=== PATIENT | female | born 1965 | race Caucasian/White ===

== ENCOUNTER 2023-03-22 09:29 | Observation (INO) | payer OTHER, SELFPAY ==
[2023-03-22] VITALS (13 sets, daily range): BP systolic 95–171; BP diastolic 58–77; PULSE 45–69; RESP 10–23; TEMP 36.2–36.7; O2SAT 92–99; BMI 23.6
--- NOTE | 2023-03-22 09:38 | DI.RAD.S_ITS ---
PROCEDURE: XR CHEST 1V INDICATIONS: chest pain TECHNIQUE: One view of the chest was acquired. COMPARISON: None. FINDINGS: Surgical changes and devices: None. Lungs and pleura: Lungs are clear. No pleural effusions or pneumothorax. Mediastinum: Mediastinal contours appear normal. Heart size is normal. Bones and chest wall: No suspicious bony lesions. Overlying soft tissues appear unremarkable. IMPRESSION: No evidence acute pulmonary process. Dictated by: Wellington Jones M.D. on 03/22/2023 at 10:28 Approved by: Wellington Jones M.D. on 03/22/2023 at 10:28
[2023-03-22 09:55] LABS: Add Manual Diff / Slide Review NO; Basophils Absolute Auto 100 /uL (0-100); Basophils Percent Auto 1.2 % (0-2); Eosinophils Absolute Auto 100 /uL (0-450); Eosinophils Percent Auto 1.7 % (2-4); Hematocrit 39.5 % (36-46); Hemoglobin 13.6 g/dL (12.0-16.0); Lymphocytes Absolute Auto 1900 /uL (1100-4500); Lymphocytes Percent Auto 31.9 % (25-40); Mean Corpuscular HGB Conc 34.3 % (30-36); Mean Corpuscular Hemoglobin 31.6 PG (26-34); Mean Corpuscular Volume 92.1 fL (80-100); Monocytes Absolute Auto 500 /uL (0-900); Monocytes Percent Auto 7.6 % (3-14); Neutrophils Absolute Auto 3400 /uL (1500-7000); Neutrophils Percent Auto 57.6 % (50-75); Platelet Count 220 X10^3/uL (150-400); Red Blood Cell Count 4.29 X10^6/uL (4.0-5.2); Red Cell Distribution Width 12.7 % (11.6-14.8)
[2023-03-22 10:05] LABS: INR 0.9 (0.9-1.3); Prothrombin Time 10.6 SECONDS (10.1-12.7)
[2023-03-22 10:07] LABS: PTT Partial Thromboplastin Tim 26 SECONDS (26-36)
[2023-03-22 10:09] LABS: Alanine Aminotransferase 26 IU/L (<35); Albumin 4.3 g/dL (3.5-5.0); Albumin Globulin Ratio 1.6 (1.0-2.8); Alkaline Phosphatase 75 U/L (38-126); Aspartate Aminotransferase 31 IU/L (14-36); BUN Creatinine Ratio 17.7 (6-22); Bilirubin Total 0.8 mg/dL (0.2-1.3); Blood Urea Nitrogen 17 mg/dL (7-17); Calcium 9.1 mg/dL (8.4-10.2); Carbon Dioxide 26 mmol/L (22-32); Chloride 106 mmol/L (98-107); Creatine Kinase 99 U/L (30-135); Estimated Glomerular Filt Rate > 60 mL/min (>60); Globulin 2.7 g/dL (1.7-4.1); Glucose 100 mg/dL (70-100); HEMOLYSIS < 15 (0-50); Lipase 103 U/L (23-300); Magnesium 2.1 mg/dL (1.6-2.3); Potassium 4.2 mmol/L (3.4-5.1); Sodium 139 mmol/L (137-145)
[2023-03-22] MEDS: ASPIRIN 81 MG CHEW TAB 324 MG PO (10:17)
[2023-03-22 10:22] LABS: Troponin I < 0.012 ng/mL (0.01-0.034)
--- NOTE | 2023-03-22 10:26 | PC.NURSE ---
Patient experienced sudden return of pain, 8/10 lasting a couple minutes before resolving, no changes noted to telemetry. Dr. Cárdenas notified and at bedside assessing pt.
--- NOTE | 2023-03-22 10:34 | ED_ITS ---
HPI - Chest Pain General Chief Complaint: Chest Pain Stated Complaint: SOB/ chest tightness/ shakey legs Time Seen by Provider: 03/22/23 09:51 Source: patient Mode of arrival: Ambulatory Limitations: no limitations History of Present Illness HPI narrative: Patient here with substernal tightness of the chest over the weekend. However it started last week but more intense this week with exertion and exercise. Betzaida ascencio is very active. She states she hikes and coughing and does sporting activities. However she does have significant primary family cardiac disease. Both parents in their 50s of heart attacks. She is never had a stress test. She does not take blood pressure medication. She is supposed to be on cholesterol medication in the past year but is not. She does not smoke. Currently 2/10 substernal tightness. At times it is reproducible other times it is not. She was bowling over the weekend when this pain intensified. No nausea no sweating no shortness of breath. Related Data Home Medications Medication Instructions Recorded Confirmed No Known Home Medications 03/22/23 03/22/23 Allergies Allergy/AdvReac Type Severity Reaction Status Date / Time No Known Drug Allergies Allergy Verified 03/22/23 09:36 Review of Systems Review of Systems Narrative: GENERAL: negative chills, fatigue, malaise, fever, sweats. HEENT: negative sinus pain, ear pain, sore throat RESPIRATORY: negative dyspnea, cough CARDIOVASCULAR: Positive chest pain, negative palpitations GASTROINTESTINAL: negative nausea, vomiting, abdominal pain : negative dysuria, frequency, hematuria MUSCULOSKELETAL: negative muscle or bony pain SKIN: negative rash, skin lesions NEUROLOGIC: negative weakness, numbness ROS Unobtainable: All systems reviewed & are unremarkable except as noted in HPI and below Patient History Social History household members: none Smoking Status: Never smoker alcohol intake: current Smoking Status: Never smoker alcohol intake frequency: 0-2 drinks per day Substance Use Type: does not use Exam Narrative Exam Narrative: GENERAL: in no distress, not toxic not dyspneic HEAD: Normocephalic. EYES: Pupils equal round ENT: Mucous membranes moist. NECK: Trachea midline. CARDIOVASCULAR: Regular rate and rhythm without murmurs RESPIRATORY: Clear to auscultation. Breath sounds equal bilaterally. No wheezes, rales, or rhonchi. GASTROINTESTINAL: Abdomen soft, non-tender EXTREMITIES: No gross deformities. BACK: No flank tenderness. NEURO: AOx4. SKIN: Warm and dry PSYCH: Not anxious, is cooperative Initial Vital Signs Initial Vital Signs: Vital Signs Temperature 97.1 F L 03/22/23 09:32 Pulse Rate 69 03/22/23 09:32 Respiratory Rate 17 03/22/23 09:32 Blood Pressure 171/71 H 03/22/23 09:32 Pulse Oximetry 99 03/22/23 09:32 Oxygen Delivery Method Room Air 03/22/23 09:32 Scores HEART Score Heart Score history: Moderately Suspicious Heart Score EKG: Non-Specific repolarization disturbance Heart Score Age: 45-64 years old Heart Score risk factors: > 3 risk factors or hx of atherosclerotic disease Heart Score troponin: < or = to normal limit Heart Score Total: 5 Course Orders Ordered: Discontinued Medications Acetaminophen (Acetaminophen 325 Mg Tablet) 650 mg PO Q6H PRN PRN Reason: Fever/Mild Pain (1-3) Aspirin (Aspirin 81 Mg Chew Tab) 324 mg PO NOW ONE Stop: 03/22/23 09:39 Last Admin: 03/22/23 10:17 Dose: 324 mg Documented By: AT Aspirin (Aspirin Ec 81 Mg Tablet) 81 mg PO DAILY [facility] Last Admin: 03/23/23 08:48 Dose: 81 mg Documented By: BT Atorvastatin Calcium (Atorvastatin 20 Mg Tablet) 40 mg PO BEDTIME [facility] Last Admin: 03/22/23 20:54 Dose: 40 mg Documented By: MAHOGANY Naloxone HCl (Naloxone 0.4 Mg/Ml Vial) 0.2 mg IV Q2MIN PRN PRN Reason: Opiate Reversal Nitroglycerin (Nitroglycerin Oint 1 Inch/Gm Oint...G.) 0.5 inch TOP NOW ONE Stop: 03/22/23 10:34 Last Admin: 03/22/23 10:37 Dose: 0.5 inch Documented By: AT Vital Signs Vital signs: Vital Signs - 8 hr 03/22/23 09:32 03/22/23 09:40 03/22/23 09:41 Temperature 97.1 F L Pulse Rate 69 61 Respiratory Rate 17 23 Blood Pressure 171/71 H 161/76 H Pulse Oximetry 99 92 Oxygen Delivery Method Room Air 03/22/23 09:41 03/22/23 10:00 03/22/23 10:00 Temperature Pulse Rate 60 59 L Respiratory Rate 10 L 13 Blood Pressure 134/66 Pulse Oximetry 97 97 Oxygen Delivery Method Room Air Room Air 03/22/23 10:37 Temperature Pulse Rate 57 L Respiratory Rate Blood Pressure 171/77 H Pulse Oximetry Oxygen Delivery Method MDM - Chest Pain Lab Data 03/23/23 04:55 03/23/23 04:55 Labs: Lab Results 03/22/23 03/22/23 03/22/23 Range/Units 09:45 09:45 09:45 WBC 6.0 (4.5-11.0) X10^3/uL RBC 4.29 (4.0-5.2) X10^6/uL Hgb 13.6 (12.0-16.0) g/dL Hct 39.5 (36-46) % MCV 92.1 (80-100) fL MCH 31.6 (26-34) PG MCHC 34.3 (30-36) % RDW 12.7 (11.6-14.8) % Plt Count 220 (150-400) X10^3/uL Neut % (Auto) 57.6 (50-75) % Lymph % (Auto) 31.9 (25-40) % [place] % (Auto) 7.6 (3-14) % Eos % (Auto) 1.7 L (2-4) % Baso % (Auto) 1.2 (0-2) % Neut # (Auto) 3400 (8112-1148) /uL Lymph # (Auto) 1900 (1294-3931) /uL [place] # (Auto) 500 (0-900) /uL Eos # (Auto) 100 (0-450) /uL Baso # (Auto) 100 (0-100) /uL PT 10.6 (10.1-12.7) SECONDS INR 0.9 (0.9-1.3) APTT 26 (26-36) SECONDS Sodium 139 (137-145) mmol/L Potassium 4.2 (3.4-5.1) mmol/L Chloride 106 (98-107) mmol/L Carbon Dioxide 26 (22-32) mmol/L BUN 17 (7-17) mg/dL Creatinine 0.96 (0.52-1.04) mg/dL Estimated GFR > 60 (>60) mL/min BUN/Creatinine Ratio 17.7 (6-22) Glucose 100 (70-100) mg/dL Calcium 9.1 (8.4-10.2) mg/dL Magnesium 2.1 (1.6-2.3) mg/dL Total Bilirubin 0.8 (0.2-1.3) mg/dL AST 31 (14-36) IU/L ALT 26 (<35) IU/L Alkaline Phosphatase 75 (38-126) U/L Total Creatine Kinase 99 (30-135) U/L CK-MB (CK-2) TNP CK-MB (CK-2) Rel Index TNP Troponin I < 0.012 (0.01-0.034) ng/mL Total Protein 7.0 (6.3-8.2) g/dL Albumin 4.3 (3.5-5.0) g/dL Globulin 2.7 (1.7-4.1) g/dL Albumin/Globulin Ratio 1.6 (1.0-2.8) Lipase 103 (23-300) U/L Imaging Data Chest x-ray: Radiologist's Impression: [address] [address] XRay Report Signed Patient: Kay Oneal MR#: [id number] : 1965 Acct:[id number] Age/Sex: 57 / F Date of Service: 03/22/23 Loc: ED Accession Number: [id number] ?? Procedure: XR chest 1V Ordering Provider: Jb Cárdenas MD PROCEDURE:? XR CHEST 1V ? INDICATIONS:? chest pain ? TECHNIQUE:? One view of the chest was acquired.? ? COMPARISON:? None. ? FINDINGS:? ? Surgical changes and devices:? None.? ? Lungs and pleura:? Lungs are clear.? No pleural effusions or pneumothorax.? ? Mediastinum:? Mediastinal contours appear normal.? Heart size is normal.? ? Bones and chest wall:? No suspicious bony lesions.? Overlying soft tissues appear unremarkable.? ? IMPRESSION:? No evidence acute pulmonary process. ? ? ? Dictated by: Wellington Jones M.D. on 03/22/2023 at 10:28 ? ? Approved by: Wellington Jones M.D. on 03/22/2023 at 10:28 ? MDM Narrative Medical decision making narrative: Patient here with substernal tightness of the chest over the weekend. However it started last week but more intense this week with exertion and exercise. Patient is very active. She states she hikes and coughing and does sporting activities. However she does have significant primary family cardiac disease. Both parents in their 50s of heart attacks. She is never had a stress test. She does not take blood pressure medication. She is supposed to be on cholesterol medication in the past year but is not. She does not smoke. Currently 2/10 substernal tightness. At times it is reproducible other times it is not. She was bowling over the weekend when this pain intensified. No nausea no sweating no shortness of breath. After history and exam CBC CMP troponin EKG chest x-ray lipase aspirin nitro paste MDM CC: Chest pain Complicating co-morbidities: Significant family history of cardiac disease, history of hypercholesteremia Data collected from: Patient Medical records reviewed: No recent visits for this complaint Differential considered: Includes but not limited to STEMI non-STEMI stable angina unstable angina Exam documented above, pertinent findings include: Nonreproducible chest pain Lab Test results independently reviewed as above. Pertinent findings: Troponin less than 0.012 WBC 6 hemoglobin 13.6 hematocrit 39.5 INR 0.9 sodium 139 AST 31 ALT 26 lipase 103 Independently reviewed EKG sinus bradycardia rate [address] elevation or d epression Imaging studies independently reviewed: Chest x-ray no acute process Consultations: 10:36 a.m.. Spoke with Cardiology, Dr. Moraes, recommends exercise treadmill stress test and echocardiogram admission. 10:57 a.m.. Spoke with hospitalist, Dr. Hough, she will admit patient Treatments: Aspirin nitro paste Re-evaluations: Reviewed results with patient. Agrees for admission. Pain is controlled. Discussion: Appropriate for admission for chest pain rule out and exercise treadmill stress test and echocardiogram. Pain is controlled at time of admission. Reviewed with hospitalist and warper tender. Patient agrees for admission. Aspirin and nitro paste given here. Diagnosis: Acute chest pain Discharge Plan Departure Patient Disposition: Admitted as Observation Clinical Impression: Chest pain Admit Date/Time: 03/22/23 10:53 Admit Provider: Adelina Hough
[2023-03-22] MEDS: NITROGLYCERIN OINT 1 INCH/GM OINT...G. 0.5 INCH TOP (10:37)
--- NOTE | 2023-03-22 11:12 | DI.ECHO.S_ITS ---
[facility]---------+ [facility] +---------+ : : [address] : : : : [id number] : : : : Phone: [phone]+ Echocardiogram Report + + :Name: FRANCINE MARQUEZ Study Date: 03/23/2023 Height: 69 in : :[facility] ReadingLocation: Weight: 160 lb : : Gender: Female BSA: 1.9 m2 : :: 1965 Age: 57 yrs BP: 101/58 mmHg: :Reason For Study: CHEST PAIN : :Ordering Physician: JOCELINE, : :ESTRELLITA Performed By: Idalia Hou : :Referring: ESTRELLITA CAR : + + Interpretation Summary The left ventricle is normal in size and wall thickness. Left ventricular systolic function appears normal without focal wall motion abnormalities. The ejection fraction is estimated to be 60-65%. Diastolic parameters suggest probable normal left ventricular diastolic function and normal filling pressures. The right ventricle is normal in size and function. The left atrial size is normal. ight atrial size is normal. There is no significant valvular heart disease. The aortic root is normal size. Procedure: A two-dimensional transthoracic echocardiogram with color flow and Doppler was performed. The study quality was technically adequate. There is no prior echocardiogram noted for this patient. The patient was in sinus bradycardia with heart rates between 48-63 bpm during the exam. Left Ventricle: The left ventricle is normal in size and wall thickness. Left ventricular systolic function appears normal without focal wall motion abnormalities. The ejection fraction is estimated to be 60-65%. Diastolic parameters suggest probable normal left ventricular diastolic function and normal filling pressures. Right Ventricle: The right ventricle is normal in size and function. Atria: The left atrial size is normal. Right atrial size is normal. There is no Doppler evidence for an interatrial shunt. Mitral Valve: The mitral valve is normal in structure and function. There is trace mitral regurgitation. Aortic Valve: The aortic valve is trileaflet. The aortic valve opens well. There is no aortic valve stenosis. No aortic regurgitation is present. Tricuspid Valve: The tricuspid valve is normal in structure and function. There is trace tricuspid regurgitation. Pulmonic Valve: The pulmonic valve is not well visualized. There is no pulmonic valvular regurgitation. There is no significant valvular heart disease. Great Vessels: The aortic root is normal size. The dimensions of the ascending aorta are normal. The IVC is of normal diameter and collapses greater than 50% with a sniff. This suggests a low right atrial pressure of 3 mm Hg. Pericardium/ Pleura There is no pericardial effusion. There is no pleural effusion. MMode/2D Measurements & Calculations LVIDd: 4.5 cm LVOT diam: 2.1 cm LVIDs: 3.1 cm Ao root diam: 3.6 cm FS: 29.9 % asc Aorta Diam: 3.2 cm EPSS: 0.71 cm Ao Arch Diam (Prox Trans): 2.4 cm IVSd: 0.83 cm LVPWd: 0.50 cm LV orozco. diameter/BSA (cm/m^2): 2.4 LV sys. diameter/BSA (cm/m^2): 1.7 LA A2 area: 15.9 cm2 RA long axis: 4.2 cm LA A4 area: 12.2 cm2 RA area: 11.2 cm2 LA length (vol): 4.4 cm RA vol: 25.2 ml LA vol: 37.7 ml RA : 13.4 ml/m2 LA vol index: 20.1 ml/m2 IVC diam: 1.5 cm RVD1 (basal): 3.0 cm RVD2 (mid): 2.7 cm TAPSE: 1.9 cm Doppler Measurements & Calculations Ao V2 max: 118.0 cm/sec LVOT Max Andry: 87.5 cm/sec Ao V2 mean: 80.4 cm/sec LV V1 max P.1 mmHg Ao max P.6 mmHg LV V1 VTI: 20.5 cm Ao mean P.9 mmHg BRICE(I,D): 2.5 cm2 Ao V2 VTI: 28.1 cm BRICE(V,D): 2.5 cm2 sev ratio: 0.73 BRICE indexed to BSA (cm^2/m^2): 1.3 MV E max andry: 66.6 cm/sec PA V2 max: 72.6 cm/sec MV A max andry: 52.0 cm/sec PA V2 mean: 49.4 cm/sec MV E/A: 1.3 PA mean P.1 mmHg Med Peak E' Adnry: 9.9 cm/sec PA pr(Accel): 12.2 mmHg E/E' med: 6.8 Lat Peak E' Andry: 13.9 cm/sec E/E' lat: 4.8 E/e' average: 5.8 MV dec time: 0.27 sec SV(LVOT): 69.4 ml Reading Physician:09:12 AM
--- NOTE | 2023-03-22 11:12 | PC.NURSE ---
Patient reports improvement since nitroglycerin placement, pain is a 0/10 to 1/10.
--- NOTE | 2023-03-22 12:04 | PC.NURSE ---
Pt arrived from ED at 1115, VSS on RA, no c/o pain. A&Ox4, no c/o chest pain or pressure, no SOB, CMS intact throughout. Lung sounds CTA, bowel sounds present. Pt ok to be independent in the room, oriented to room and call light. Tele monitor placed, NPO awaiting stress test and Echo.
--- NOTE | 2023-03-22 17:45 | PM.HP.1 ---
History of Present Illness History of Present Illness Chief complaint: SOB/ chest tightness/ shakey legs Narrative: 57-year-old female with history of hyperlipidemia who presented to the emergency department today with chest pain/pressure. Patient reports she is very active at baseline. Six days ago she did an 8 mi hike and was able to complete it without difficulty. She is in a bowling league and states she was bowling through the weekend. She noticed onset of some chest pressure while she was bowling yesterday. She notes that the symptoms lasted about 5 minutes. She did not have any associated lightheadedness, diaphoresis, nausea, or shortness of breath. She thought it might be musculoskeletal as it occurred while she was throwing the ball (she is right-handed). She describes a pressure like someone was sitting on her chest. She notes when she bent down the symptoms worsened. She states the symptoms continued on and off throughout the evening. They occurred while she was driving home. Ultimately, they resolved. She states this morning she went out to turn on the water to water her garden. When bending down and twisting the handle on the water faucet, she noticed recurrence of the symptoms. She stood up and felt a little lightheaded. She also felt she was a little bit diaphoretic. She contacted her sister who recommended she come to the ER for further evaluation. In the emergency department, she complained of 2/10 chest pain/pressure. Initial temp was 97.1?, heart rate 69, respiratory rate 17, BP 171/71. She reports her usual blood pressure runs in the low 100 systolic. Initial troponin was negative. EKG revealed nonspecific ST changes but appeared nonischemic. She was given aspirin 325 mg, 1/2 inch of nitropaste. Although her primary risk factor is hyperlipidemia, there is a family history of cardiac disease in both parents in their 50s. Patient has no history of hypertension, tobacco dependence, or diabetes. Emergency department physician discussed the case with Cardiology on-call who recommended an exercise treadmill test and echocardiogram for further risk stratification. Initially, it was thought her treadmill could be done today. The emergency department physician advised he would obtain a 2nd troponin level but it does not appear that was requested. Currently, patient reports she is pain-free. She notes that the nitro paste seemed to do the most in relieving her symptoms. She is presently chest pain-free. [facility] Social History household members: none Smoking Status: Never smoker alcohol intake: current Comment: Past medical history: Hyperlipidemia-patient reports her total cholesterol is up near 300, but her ratio is typically normal, she does have an active atorvastatin prescription at home but does not take it. Achilles tendonitis Family history: Both parents had heart disease and in their 50s Sister has GERD Social history: Lifelong nonsmoker. Occasional alcohol use Meds Home Medications and Allergies Home Medications Medication Instructions Recorded Confirmed Type No Known Home Medications 03/22/23 03/22/23 History Allergies Allergy/AdvReac Type Severity Reaction Status Date / Time No Known Drug Allergies Allergy Verified 03/22/23 09:36 Review of Systems Review of Systems Narrative: All other systems were reviewed negative Exam Vital Signs (past 8 hours): - 03/22/23 10:00 03/22/23 10:00 03/22/23 10:37 Temperature Pulse Rate 59 L 57 L Respiratory Rate 13 Blood Pressure 134/66 171/77 H Pulse Oximetry 97 Oxygen Delivery Method Room Air Oxygen Flow Rate 03/22/23 10:30 03/22/23 10:31 03/22/23 10:31 Temperature Pulse Rate 61 57 L Respiratory Rate 14 Blood Pressure 171/77 H Pulse Oximetry 97 96 Oxygen Delivery Method Room Air Oxygen Flow Rate 03/22/23 11:00 03/22/23 11:01 03/22/23 11:01 Temperature Pulse Rate 54 L 59 L Respiratory Rate 12 19 Blood Pressure 127/66 Pulse Oximetry 97 96 Oxygen Delivery Method Room Air Room Air Oxygen Flow Rate 03/22/23 11:32 03/22/23 11:53 03/22/23 13:45 Temperature 97.8 F Pulse Rate 56 L 45 L Respiratory Rate 16 Blood Pressure 134/63 107/69 Pulse Oximetry 96 Oxygen Delivery Method Room Air Oxygen Flow Rate 0 Oxygen Delivery Method Room Air Oxygen Flow Rate 0 Narrative Exam Narrative: GEN: Very pleasant middle-aged female, Alert and oriented x3, no acute distress HEENT: Normocephalic, face symmetric, pupils equal round reactive to light, extraocular movements intact, sclerae anicteric, conjunctiva clear, nares patent, oropharynx reveals an intact soft and hard palate with moist mucous membranes, dentition is fair NECK: Supple, no lymphadenopathy, thyroid without enlargement or nodularity, carotids no bruits CHEST: Respiratory excursions symmetric, clear to auscultation bilaterally CV: Regular rate and rhythm, no murmurs, rubs, gallops, PMI nondisplaced ABD: Soft, nontender, nondistended, bowel sounds present in all 4 quadrants, no organomegaly or masses appreciated EXTR: Warm, well perfused, no clubbing/cyanosis/edema SKIN: Warm and dry, without rash NEURO: Alert and oriented x3, grossly intact PSYCH: Mood and affect is within normal limits, judgment and insight are appropriate Objective Labs 03/22/23 09:45 03/22/23 09:45 Labs: Laboratory Results - last 24 hr 03/22/23 03/22/23 03/22/23 09:45 09:45 09:45 WBC 6.0 RBC 4.29 Hgb 13.6 Hct 39.5 MCV 92.1 MCH 31.6 MCHC 34.3 RDW 12.7 Plt Count 220 Neut % (Auto) 57.6 Lymph % (Auto) 31.9 [place] % (Auto) 7.6 Eos % (Auto) 1.7 L Baso % (Auto) 1.2 Neut # (Auto) 3400 Lymph # (Auto) 1900 [place] # (Auto) 500 Eos # (Auto) 100 Baso # (Auto) 100 PT 10.6 INR 0.9 APTT 26 Sodium 139 Potassium 4.2 Chloride 106 Carbon Dioxide 26 BUN 17 Creatinine 0.96 Estimated GFR > 60 BUN/Creatinine Ratio 17.7 Glucose 100 Calcium 9.1 Magnesium 2.1 Total Bilirubin 0.8 AST 31 ALT 26 Alkaline Phosphatase 75 Total Creatine Kinase 99 CK-MB (CK-2) TNP CK-MB (CK-2) Rel Index TNP Troponin I < 0.012 Total Protein 7.0 Albumin 4.3 Globulin 2.7 Albumin/Globulin Ratio 1.6 Lipase 103 Assessment & Plan Assessment & Plan narrative: 1. Chest pain Risk factors include hyperlipidemia, family history. Somewhat reassuring is the fact that she did not 8 mi hike just 6 days ago and had no anginal symptoms. However, she did have chest pressure, diaphoresis, and she reports some lightheadedness. Responded to nitro paste. Patient is admitted under observation status. Will send a fasting lipid panel. Will repeat a stat troponin level. She will be NPO after midnight and undergo an exercise stress test and echocardiogram in the morning. 2. Elevated blood pressures On arrival, she would significantly elevated blood pressures, which may have been secondary to anxiety/pain. Blood pressures have gradually improved and normalized over the course of her time in the hospital. Will monitor. 3. Hyperlipidemia Patient reports she has an active prescription of atorvastatin at home. She says the meds have not . She agrees that she should restart it. Fasting lipids will be drawn in the morning. 4. Sinus bradycardia Suspect this is her normal resting heart rate as she is very active woman and rather athletic overall. 5. Achilles tendonitis She will have a friend bring her appropriate shoes for her treadmill stress test tomorrow she only has loafers here. She reports she was discharged from physical therapy a month ago. Code status Full Prophylaxis Low Corrina score Disposition Admit to observation status Quality VTE Deep Vein Thrombosis/Pulmonary Embolism Present on Admission: No
[2023-03-22 19:11] LABS: Troponin I < 0.012 ng/mL (0.01-0.034)
[2023-03-22] MEDS: ATORVASTATIN 20 MG TABLET 40 MG PO (20:54)
[2023-03-23 01:04] VITALS: BP 96/55; PULSE 61; RESP 19; TEMP 36.1; O2SAT 96
[2023-03-23 05:04] VITALS: BP 101/58; PULSE 58; RESP 18; TEMP 36.1; O2SAT 95
[2023-03-23 05:38] LABS: BUN Creatinine Ratio 27.5 (6-22); Blood Urea Nitrogen 19 mg/dL (7-17); Calcium 8.7 mg/dL (8.4-10.2); Carbon Dioxide 26 mmol/L (22-32); Chloride 107 mmol/L (98-107); Estimated Glomerular Filt Rate > 60 mL/min (>60); Glucose 99 mg/dL (70-100); HEMOLYSIS 47 (0-50); Potassium 4.2 mmol/L (3.4-5.1); Sodium 138 mmol/L (137-145)
[2023-03-23 05:40] LABS: Cholesterol 241 mg/dL (140-199); HDL Cholesterol 57 mg/dL (40-60); LDL Cholesterol Calculated 159 mg/dL (<100); Triglycerides 124 mg/dL (35-150)
[2023-03-23 05:47] LABS: Add Manual Diff / Slide Review NO; Basophils Absolute Auto 0 /uL (0-100); Basophils Percent Auto 0.8 % (0-2); Eosinophils Absolute Auto 100 /uL (0-450); Eosinophils Percent Auto 2.6 % (2-4); Hematocrit 36.7 % (36-46); Hemoglobin 12.7 g/dL (12.0-16.0); Lymphocytes Absolute Auto 1800 /uL (1100-4500); Lymphocytes Percent Auto 40.5 % (25-40); Mean Corpuscular HGB Conc 34.7 % (30-36); Mean Corpuscular Hemoglobin 31.7 PG (26-34); Mean Corpuscular Volume 91.5 fL (80-100); Monocytes Absolute Auto 400 /uL (0-900); Monocytes Percent Auto 8.4 % (3-14); Neutrophils Absolute Auto 2200 /uL (1500-7000); Neutrophils Percent Auto 47.7 % (50-75); Platelet Count 190 X10^3/uL (150-400); Red Blood Cell Count 4.01 X10^6/uL (4.0-5.2); Red Cell Distribution Width 12.6 % (11.6-14.8); White Blood Cell Count 4.5 X10^3/uL (4.5-11.0)
[2023-03-23 08:00] VITALS: BP 105/62; PULSE 59; RESP 20; TEMP 35.9; O2SAT 98
[2023-03-23] MEDS: ASPIRIN EC 81 MG TABLET PO (08:48)
[2023-03-23 12:00] VITALS: BP 112/66; PULSE 72; RESP 18; TEMP 36.5; O2SAT 98
--- NOTE | 2023-03-23 12:01 | CM.DANOTE ---
Discharge Planning/Care Management CM Discharge Assessment Start: 03/23/23 11:56 Freq: Status: Active Protocol: Document 03/23/23 11:57 NOE (Rec: 03/23/23 12:01 NOE [id number]) Discharge Planning Assessment Assigned Quarrying Manager CAITLIN Thomas DPOA/Assigned Designee Name Ana Laura Guerrero, mother ([place]) Contact Information [phone] Advance Directives? No History Provided By Patient,Medical Record Prior Living Arrangements House Household Members none Type of transporation used prior to Drives own vehicle admit Independent with ADL's Yes Is patient alert and oriented? Yes Barriers to Discharge No Comment Patient is a 57 yo female, resident of [place], presents with SOB and admitted for CP r/o, echo done and stress test pending. Patient is indp at active at baseline and it is anticipated patient will return home today w/ friend w/recommendation for close outpatient follow up No needs identified from this CM team, will plan to follow in case any DC needs or concerns arise before discharge Discharge Plan Home Transportation Arrangement Friend to transport Referrals Initiated None needed
--- NOTE | 2023-03-24 13:25 | PM.DS.1 ---
History of Present Illness History of Present Illness Chief complaint: SOB/ chest tightness/ shakey legs Narrative: Per admitting provider: 57-year-old female with history of hyperlipidemia who presented to the emergency department today with chest pain/pressure. Patient reports she is very active at baseline. Six days ago she did an 8 mi hike and was able to complete it without difficulty. She is in a bowling league and states she was bowling through the weekend. She noticed onset of some chest pressure while she was bowling yesterday. She notes that the symptoms lasted about 5 minutes. She did not have any associated lightheadedness, diaphoresis, nausea, or shortness of breath. She thought it might be musculoskeletal as it occurred while she was throwing the ball (she is right-handed). She describes a pressure like someone was sitting on her chest. She notes when she bent down the symptoms worsened. She states the symptoms continued on and off throughout the evening. They occurred while she was driving home. Ultimately, they resolved. She states this morning she went out to turn on the water to water her garden. When bending down and twisting the handle on the water faucet, she noticed recurrence of the symptoms. She stood up and felt a little lightheaded. She also felt she was a little bit diaphoretic. She contacted her sister who recommended she come to the ER for further evaluation. In the emergency department, she complained of 2/10 chest pain/pressure. Initial temp was 97.1?, heart rate 69, respiratory rate 17, BP 171/71. She reports her usual blood pressure runs in the low 100 systolic. Initial troponin was negative. EKG revealed nonspecific ST changes but appeared nonischemic. She was given aspirin 325 mg, 1/2 inch of nitropaste. Although her primary risk factor is hyperlipidemia, there is a family history of cardiac disease in both parents in their 50s. Patient has no history of hypertension, tobacco dependence, or diabetes. Emergency department physician discussed the case with Cardiology on-call who recommended an exercise treadmill test and echocardiogram for further risk stratification. Initially, it was thought her treadmill could be done today. The emergency department physician advised he would obtain a 2nd troponin level but it does not appear that was requested. Currently, patient reports she is pain-free. She notes that the nitro paste seemed to do the most in relieving her symptoms. She is presently chest pain-free. Discharge Providers Provider Date of admission: 03/22/23 10:53 Discharge Date: 03/23/23 Primary care physician: VALENTIN West Discharge provider: Hermelindo Diamond MD Summary Hospital Course Discharge Diagnosis: 1. Chest pain, atypical Hospital Course: Ms. Oneal presented to the hospital with chest heaviness that was substernal. It was mostly constant. She had negative troponins. Her ECHO showed no abnormalities. Her stress test was low risk. She may have had musculoskeletal strain after some activities or possible reflux. She was encouraged to follow up with her PCP after discharge. Exam Vital Signs (past 8 hours): Oxygen Delivery Method Room Air Oxygen Flow Rate 0 Narrative Exam Narrative: GEN: no acute distress CHEST: clear to auscultation bilaterally CV: Regular rate and rhythm, no murmurs ABD: Soft, nontender, nondistended Objective Labs 03/23/23 04:55 03/23/23 04:55 PFSH Social History household members: none Smoking Status: Never smoker alcohol intake: current Discharge Plan Discharge Plan Patient Disposition: Home Provider Discharge Comment: Ms. Oneal came in to the hospital with chest pain. She had an ECHO and stress test that were reassuring that there was no heart attack. Discharge orders & Medications Prescriptions: No Action No Known Home Medications Follow up/Referrals: Iva Vasquez ARNP [Primary Care Provider] - 04/06/23 1:40 pm (Appt:04/06 @ 1:40 with yash [facility] Dx: hospitalized for chest pain) Diet/Activity/Treatments Diet: Regular Visit Report/Discharge Packet Instructions: DI for Chest Pain Stand Alone Forms: Patient Portal/API, Stroke Signs & Symptoms Discharge Data Primary Care Provider: Iva Vasquez Attending Provider: Adelina Hough Admit Date/Time: 03/22/23 10:53 Discharges patient from system. Discharge Date/Time: 03/23/23 14:08 Quality VTE Deep Vein Thrombosis/Pulmonary Embolism Present on Admission: No
--- NOTE | 2023-04-09 05:34 | DI.NM.S_ITS ---
DATE OF SERVICE: PROCEDURE: Exercise stress test INDICATION: Chest pain CARDIAC STRESS: Patient underwent exercise stress test under the supervision of an attending staff. He walked on Grabiel protocol for 10 minutes and 43 seconds, achieved maximum heart rate of 167, which was 103 percent of target heart rate. Normal blood pressure response. Peak blood pressure 162/86 mmHg. Achieved 12.8 METs of workload, CANELO -50%. Baseline rhythm was sinus. During stress, no convincing ischemic changes. The patient has rare PVCs and he was symptomatic. At peak exercise, patient had mild chest discomfort which was on a scale of 1 to 10, 3 in intensity. Resolved in 2 minutes into the recovery. During chest discomfort, no ischemic changes or significant arrhythmias. CONCLUSION: 1. Exercise stress test is negative for inducible ischemia. 2. Excellent exercise tolerance with CANELO -50%, 12.8 METs of workload. Normal hemodynamic response. At peak exercise, felt chest discomfort which was on a scale of 1 to 10, 3 in intensity, and resolved within 2 minutes in recovery. No ischemic electrocardiographic changes at that time. Rare PVCs. As far as exercise stress test is concerned, it is low risk exercise stress test. Kay Oneal - MENDEZ/lena/moses doc#: [id number]/job#: [id number] dd: 03/23/2023 12:56:00 dt: 03/23/2023 13:17:00 DICTATING /COPIES TO: Fernando Moraes MD COPIES MNE: BRIGIDA;
== END 2023-03-23 14:08 | disposition home or self-care (01) ==
LOC: ED 10:39 → AC 10:54
PROVIDERS: Admitting Provider Family Medicine; Emergency Provider Emergency Medicine; PCP Nurse Practitioner Family; Visit Provider Family Medicine
DX: R07.9 Chest pain, unspecified (principal); E78.5 Hyperlipidemia, unspecified; R00.1 Bradycardia, unspecified; M76.60 Achilles tendinitis, unspecified leg
CPT/HCPCS: 36415; 71045; 80048; 80053; 80061; 82550; 83690; 83735; 84484; 85025; 85610; 85730; 93005; 93010; 93017; 93306; 99284; G0378

== ENCOUNTER → 2023-09-19 09:40 | Outpatient (CLI) | payer OTHER, SELFPAY ==
[2023-03-22 10:56] VITALS: BMI 23.6
--- NOTE | 2023-09-19 09:42 | DI.MRI.S_ITS ---
PROCEDURE: MR ANKLE LT WO CON INDICATIONS: Pain in left ankle and joints of left foot TECHNIQUE: Noncontrast sagittal T1 spin echo and T2 fast spin echo with fat saturation, axial proton density fast spin echo and T2 fast spin echo with fat saturation, coronal T1 spin echo and T2 fast spin echo with fat saturation through the ankle/hindfoot. COMPARISON: None. FINDINGS: Image quality: Excellent. Bones and joints: Mild midfoot and hindfoot joint osteoarthritis is seen with joint space narrowing and subchondral sclerosis. No bone marrow contusions or fractures. No hindfoot coalitions. Small osteochondral injuries involving lateral weight-bearing portion of talar dome is seen measures up to 3 mm in size. No pathologic joint effusions. Medial structures: The posterior tibialis, flexor digitorum longus, and flexor hallucis longus tendons are intact. Small to moderate amount of fluid distending flexor tendon sheath is noted. The posterior tibial neurovascular bundle appears normal within the tarsal tunnel, without extrinsic mass effect. The deep layer (anterior and posterior tibiotalar ligaments) and superficial layer (tibionavicular, tibiospring, and tibiocalcaneal ligaments) of the deltoid ligament appear normal. The spring ligament components (superomedial calcaneonavicular, medioplantar oblique calcaneonavicular, and inferoplantar longitudinal ligaments) are intact. Lateral structures: The anterior talofibular ligament is mildly thickened with intrasubstance T2 hyperintense signal. The calcaneofibular, and posterior talofibular ligaments appear intact. More superiorly, the anterior tibial fibular is also mildly thickened with intrasubstance T2 hyperintense signal. The posterior tibial fibular ligament is intact. The tibiofibular syndesmosis is normal in width at 2 mm or less. The peroneus longus and brevis tendons demonstrate normal location and morphology. Adjacent bony peroneal tubercle and retrotrochlear prominence are normal in size. The sinus tarsi demonstrates normal fatty signal, without edema, fibrosis, or cyst formation. Visualized sinus tarsi components (cervical ligament, interosseous talocalcaneal ligament, roots of the inferior extensor retinaculum) appear normal. The calcaneonavicular and calcaneocuboid components of the bifurcate ligament appear intact. The dorsal calcaneocuboid ligament appears intact. Anterior structures: The tibialis anterior, extensor hallucis longus, and extensor digitorum longus tendons appear intact. The dorsal talonavicular ligament appears intact. Posterior and plantar structures: Diffusely thickened Achilles tendon extending to its posterior calcaneal insertion is seen. No Achilles tendon rupture. Medial and lateral bands of the plantar fascia are of normal thickness. No abductor digiti quinti muscle atrophy to suggest Campos neuropathy. IMPRESSION: 1. Mild midfoot and hindfoot joint osteoarthritis. No fracture or dislocation. Tiny osteochondral injuries involving lateral weight-bearing portion of talar dome measures up to 3 mm in size. 2. Low-grade tenosynovitis involving flexor tendons with fluid distending tendon sheath. 3. Low-grade sprain/intrasubstance partial-thickness tear involving anterior talofibular ligament and anterior tibial fibular ligament. No full-thickness ankle ligament rupture. 4. Mild distal Achilles tendinosis extending to its posterior calcaneal insertion. No Achilles tendon rupture. Dictated by: David Nazario M.D. on 09/20/2023 at 11:11 Approved by: David Nazario M.D. on 09/20/2023 at 11:26
== END ==
PROVIDERS: PCP Nurse Practitioner Family; Referring Provider Podiatrist; Visit Provider Podiatrist
DX: M76.62 Achilles tendinitis, left leg (principal); M19.072 Primary osteoarthritis, left ankle and foot; S93.432A Sprain of tibiofibular ligament of left ankle, initial encounter; S93.492A Sprain of other ligament of left ankle, initial encounter; M25.572 Pain in left ankle and joints of left foot; M65.872 Other synovitis and tenosynovitis, left ankle and foot; R26.2 Difficulty in walking, not elsewhere classified
CPT/HCPCS: 73721